=== PATIENT | female | born 1955 | race Caucasian/White ===

== ENCOUNTER 2023-11-16 17:37 | Emergency (ER) | payer MEDICARE, OTHER, SELFPAY ==
[2023-11-16 17:38] VITALS: PULSE 94; RESP 18
--- NOTE | 2023-11-16 17:41 | ECG_ITS ---
[facility] Test Date: 2023-11-16 Pat Name: Lisa Guerra Department: Room: Gender: Female [employer]er: : 1955 Requested By: Latrice Schulz Order Number: [id number] Martinez MD: Jamaal Zamarripa M.D. Measurements Intervals Media Rate: 94 P: 0 MD: 0 QRS: -54 QRSD: 85 T: 54 QT: 371 QTc: 465 Interpretive Statements ATRIAL FIBRILLATION PATTERN CONSISTENT WITH PULMONARY DISEASE LEFT ANTERIOR FASCICULAR BLOCK [QRS AXIS <= -45, QR IN I, RS IN II] Compared to ECG 10/31/2018 15:08:12 Left anterior fascicular block now present Sinus rhythm no longer present ST (T wave) deviation no longer present Electronically Signed On 11-17-2023 0:04:05 CDT by Jamaal Zamarripa M.D. [id number]
--- NOTE | 2023-11-16 17:49 | XRR_ITS ---
PROCEDURE INFORMATION: Exam: XR Chest Exam date and time: 11/16/2023 6:11 PM Age: 67 years old Clinical indication: Other: Pain and palpitations TECHNIQUE: Imaging protocol: Radiologic exam of the chest. Views: 1 view. COMPARISON: CR XR chest 1V [id number] 10/31/2018 3:15 PM FINDINGS: Lungs: Unremarkable. No consolidation. Pleural spaces: Unremarkable. No pleural effusion. No pneumothorax. Heart/Mediastinum: Unremarkable. No cardiomegaly. Bones/joints: Unremarkable. XR/XR chest 1V portable [id number] IMPRESSION: No acute findings.
--- NOTE | 2023-11-16 17:50 | ED_ITS ---
HPI - Arrhythmia/Palpitations 2 General: Chief Complaint: Arrhythmia/Palpitations Stated Complaint: A Fib/ RVR Time Seen by Provider: 11/16/23 17:45 History of Present Illness: 67-year-old female with a history of atr ial fibrillation who presents the emergency room with atrial fibrillation with rapid ventricular response by ambulance. She was in the 170s to 180s according to EMS and they gave some diltiazem and she is dropped back down to the 90s and low 100s. She said she had gone out shopping yesterday and had some swelling in her hands and feet. This seems to have improved at this point. Patient follows with Dr. Matute in [place] and Dr. Macedo in [place]. She says recently she has been having increased episodes and frequency of going into A-fib with RVR. She said for a while it was every month and then it was every 2 weeks and this time it was just 8 days. She is anticoagulated on Coumadin. Review of Systems 2 Narrative: Constitutional symptoms: Negative except as documented in HPI. Skin symptoms: Negative except as documented in HPI. Eye symptoms: Negative except as documented in HPI. ENMT symptoms: Negative except as documented in HPI. Respiratory symptoms: Negative except as documented in HPI. Cardiovascular symptoms: Negative except as documented in HPI. Gastrointestinal symptoms: Negative except as documented in HPI. Genitourinary symptoms: Negative except as documented in HPI. Musculoskeletal symptoms: Negative except as documented in HPI. Neurologic symptoms: Negative except as documented in HPI. Psychiatric symptoms: Negative except as documented in HPI. Endocrine symptoms: Negative except as documented in HPI. Physical Exam 2 Narrative: EXAM NARRATIVE: General: Alert, no acute distress. Skin: Warm, dry. Head: Normocephalic, atraumatic. Neck: Supple, trachea midline. Eye: Extraocular movements are intact. Ears, nose, mouth and throat: mucosa moist. Cardiovascular: Irregularly irregular, tachycardic, Normal peripheral perfusion. Respiratory: Lungs are clear to auscultation, respirations are non-labored, breath sounds are equal, Symmetrical chest wall expansion. Gastrointestinal: Soft, Nontender, Non distended, Normal bowel sounds. Musculoskeletal: Normal ROM, no deformity. Neurological: Alert and oriented, No focal neurological deficit observed. Psychiatric: Cooperative, appropriate mood & affect. Course 2 Vital Signs: Vital signs: Vital Signs Pulse Rate 95 11/16/23 20:18 Respiratory Rate 18 11/16/23 17:38 Blood Pressure 125/78 11/16/23 18:52 Pulse Oximetry 96 11/16/23 20:18 Oxygen Delivery Me thod Room Air 11/16/23 20:18 MDM - Arrhythmia/Palpitations Medical Decision Making Medical decision making: Differential diagnosis including but not limited to and based on the above HPI, review of systems and physical exam: for patient with palpitations: atrial fibrillation with rapid ventricular response. ventricular tachycardia. sinus tachycardia. PVCs. also concern for underlying issues causing tachycardia. Infection, electrolyte abnormalities and thyroid issues Orders placed to evaluate differential diagnosis based on the above differential, HPI and physical exam EKG: Time 1741. Rate 94. Atrial fibrillation with controlled rate, No ST-T changes, no ectopy, This was reviewed and interpreted by myself the ER physician at 1744. Chest x-ray: No acute process. No infiltrate. No pneumothorax. No cardiomegaly. This was reviewed and interpreted by myself the ER physician. Lab Review: Laboratory results were reviewed and interpreted by myself the emergency room physician. White count is 8. Hemoglobin is 15. No anemia. BUN and creatinine are 16 and 0.7. No renal failure. Sodium is normal. Potassium is normal. Magnesium and TSH are unremarkable. Initial troponin is negative. proBNP is 600. No signs of heart failure on chest x-ray. Patient was unable to provide a urine sample. She says she does not think she has a UTI and she wants to go home. She does not want to wait for urinalysis. I reviewed the patient's medical record. Reexamination: Patient appears quite a bit improved. She is insistent she is ready to go home. Rate is down below 100 consistently. No increased work of breathing. No altered mental status. She is up and walking to the bathroom. Assessment and plan: A-fib with RVR - Discharged home - Discussed findings and plan with patient. Answered any questions. - All laboratory values were reviewed and interpreted personally by myself, the ER physician - All imaging was reviewed and interpreted personally by myself, the ER physician. - Evaluation and treatment of this problem were appropriate in the emergency setting Lab Data 11/16/23 18:04 11/16/23 18:04 Radiology Impressions Chest X-Ray 11/16/23 17:49 IMPRESSION: No acute findings. Laboratory Results WBC 8.08 10^3/uL (3.29-11.43) 11/16/23 18:04 RBC 4.61 10^6/uL (3.85-5.65) 11/16/23 18:04 Hgb 15.10 g/dL (11.27-16.99) 11/16/23 18:04 Hct 44.2 % (36-47) 11/16/23 18:04 MCV 95.9 fl (85-98) 11/16/23 18:04 MCH 32.8 pg (27-33) 11/16/23 18:04 MCHC 34.2 g/dL (30-55) 11/16/23 18:04 RDW 13.3 % (12.1-15.1) 11/16/23 18:04 Plt Count 241 10^3/cmm (157-399) 11/16/23 18:04 MPV 10.5 fL (7.4-10.4) H 11/16/23 18:04 Neut % (Auto) 52.5 % 11/16/23 18:04 Lymph % (Auto) 32.8 % 11/16/23 18:04 Barbour % (Auto) 9.3 % 11/16/23 18:04 Eos % (Auto) 4.2 % 11/16/23 18:04 Baso % (Auto) 1.0 % 11/16/23 18:04 Neut # (Auto) 4.24 10^3/uL (1.8-7.7) 11/16/23 18:04 Lymph # (Auto) 2.7 10^3/uL (0.8-4.8) 11/16/23 18:04 Barbour # (Auto) 0.8 10^3/uL (0.2-0.9) 11/16/23 18:04 Eos # (Auto) 0.3 10^3/uL (0.0-0.8) 11/16/23 18:04 Baso # (Auto) 0.1 10^3/uL (0.0-0.1) 11/16/23 18:04 Nucleated RBC % (auto) 0 % 11/16/23 18:04 Nucleated RBCs # 0.0 /100WBC 11/16/23 18:04 PT 19.40 SECONDS (12.1-14.9) H 11/16/23 18:04 INR 1.58 (0.8-1.2) H 11/16/23 18:04 APTT 35.4 SECONDS (23.9-36.7) 11/16/23 18:04 Sodium 145 mmol/L (136-145) 11/16/23 18:04 Potassium 3.8 mmol/L (3.5-5.1) 11/16/23 18:04 Chloride 109 mmol/L (98-107) H 11/16/23 18:04 Carbon Dioxide 25 mmol/L (22-29) 11/16/23 18:04 Anion Gap 14.8 (5-19) 11/16/23 18:04 BUN 16 mg/dL (8-23) 11/16/23 18:04 Creatinine 0.7 mg/dL (0.5-0.9) 11/16/23 18:04 GFR Calculation 83.2 mL/min (90-130) L 11/16/23 18:04 Glucose 98 mg/dL (65-115) 11/16/23 18:04 Calculated Osmolality 301 mOsm/kg (285-295) H 11/16/23 18:04 Calcium 9.4 mg/dL (8.5-10.5) 11/16/23 18:04 Magnesium 2.0 mg/dL (1.7-2.3) 11/16/23 18:04 Total Bilirubin 0.5 mg/dL (0.15-1.2) 11/16/23 18:04 AST 18 U/L (0-32) 11/16/23 18:04 ALT 16 U/L (0-33) 11/16/23 18:04 Alkaline Phosphatase 122 U/L (35-105) H 11/16/23 18:04 Troponin T Baseline < 6 ng/L (0-10) 11/16/23 18:04 C-Reactive Protein 3.2 mg/L (0.0-4.9) 11/16/23 18:04 NT-Pro-B Natriuret Pep 613 pg/mL (0-125) H 11/16/23 18:04 Total Protein 7.3 g/dL (6.6-8.7) 11/16/23 18:04 Albumin 4.3 g/dL (3.5-5.2) 11/16/23 18:04 Globulin 3.0 g/dL (1.3-4.6) 11/16/23 18:04 Amorphous Sediment Not Reportable 11/16/23 19:38 All radiology interpretation(s) finalized by discharge Discharge Plan Discharge Patient Disposition: Home Clinical Impression: Atrial fibrillation Qualifiers: Atrial fibrillation type: unspecified Qualified Code(s): I48.91 - Unspecified atrial fibrillation Condition: Stable Discharge Orders: Discharge ED (Routine); Ordered 11/16/23 Ordered By: Latrice Hollingsworth Referrals: Ivon Moon APRN [Primary Care Provider] - Discharge Diet: Usual diet Discharge Activity: Increase activity as tolerated Patient Instructions: A-fib (Atrial Fibrillation) (ED) Activity Restrictions/Additional Instructions: Thank you for choosing [facility] for your healthcare needs today. Please realize this is an emergency room and that we are providing you with a medical screening exam and this may not be complete and all inclusive of all the testing and or work up that you may need to determine your ailment or severity of your illness. You have been screened and evaluated and felt safe for discharge. Health conditions do change or evolve sometimes and as such it is important that you follow up with your Primary Doctor to be re checked, 3-5 days is a general good time frame for follow up. You are always welcome to return to the ED for re assessment if your symptoms are worsening or you have new concerns Coding Level of Care Code ED [employer] for Massimo Newsome
[2023-11-16 18:25] LABS: Basophils # 0.1 10^3/uL (0.0-0.1); Eosinophils # 0.3 10^3/uL (0.0-0.8); Eosinophils % 4.2 %; Hematocrit 44.2 % (36-47); Lymphocytes # 2.7 10^3/uL (0.8-4.8); Lymphocytes % 32.8 %; Mean Corpuscular HGB Conc 34.2 g/dL (30-55); Mean Corpuscular Hemoglobin 32.8 pg (27-33); Mean Corpuscular Volume 95.9 fl (85-98); Mean Platelet Volume 10.5 fL (7.4-10.4); Monocytes # 0.8 10^3/uL (0.2-0.9); Monocytes % 9.3 %; Neutrophils # 4.24 10^3/uL (1.8-7.7); Neutrophils % 52.5 %; Nucleated Red Blood Cells % 0 %; Platelet Count 241 10^3/cmm (157-399); Red Blood Count 4.61 10^6/uL (3.85-5.65); Red Cell Distribution Width 13.3 % (12.1-15.1); White Blood Count 8.08 10^3/uL (3.29-11.43)
[2023-11-16 18:46] LABS: INR 1.58 (0.8-1.2)
[2023-11-16 18:47] LABS: Partial Thromboplastin Time 35.4 SECONDS (23.9-36.7); Troponin(5th) Baseline < 6 ng/L (0-10)
[2023-11-16 18:52] VITALS: BP 125/78; PULSE 115; O2SAT 97
[2023-11-16 18:56] LABS: Alanine Aminotransferase 16 U/L (0-33); Albumin Level 4.3 g/dL (3.5-5.2); Alkaline Phosphatase 122 U/L (35-105); Anion Gap 14.8 (5-19); Aspartate Amino Transferase 18 U/L (0-32); Blood Urea Nitrogen 16 mg/dL (8-23); C Reactive Protein 3.2 mg/L (0.0-4.9); Calcium 9.4 mg/dL (8.5-10.5); Carbon Dioxide 25 mmol/L (22-29); Chloride 109 mmol/L (98-107); Glomerular Filtration Rate 83.2 mL/min (90-130); Glucose 98 mg/dL (65-115); NT Pro B Type Natriuretic Pept 613 pg/mL (0-125); Osmolality Calculated 301 mOsm/kg (285-295); Potassium 3.8 mmol/L (3.5-5.1); Sodium 145 mmol/L (136-145); Total Bilirubin 0.5 mg/dL (0.15-1.2); Total Protein 7.3 g/dL (6.6-8.7)
[2023-11-16 20:18] VITALS: PULSE 95; O2SAT 96
[2023-11-16 20:29] LABS: Troponin 5 2HR Delta 0.00001 ABS# (0-10)
[2023-11-16 20:38] LABS: Bilirubin Urine Neg (Negative); Blood Urine 3+ (Negative); Glucose Urine UA Norm (Normal); Ketones Urine Negative (Negative); Leukocyte Esterase Urine Negative (Negative); Nitrate Urine Negative (Negative); Protein Urine Neg (Negative); Specific Gravity, Urine 1.015 (1.005-1.030); Sulfosalicylic Acid Urine Negative (Negative); Urine Appearance Clear (CLEAR); Urine Color Yellow (Yellow); Urobilinogen Urine Neg (Negative); WBC Urine 0-4 /hpf (0-5); pH Urine 8 (5-7)
[2023-11-16 20:39] LABS: Add Urine Culture? No; Bacteria Urine 1+ /hpf; Squamous Epithelial Cell Urine 0-4 /hpf (0-5)
[2023-11-16 20:42] VITALS: BP 125/72; PULSE 95; O2SAT 96
== END 2023-11-16 20:43 | disposition home or self-care (01) ==
PROVIDERS: Emergency Provider Emergency Medicine; Family Provider Nurse Practitioner Family; PCP Nurse Practitioner Family
DX: I48.91 Unspecified atrial fibrillation (principal)
CPT/HCPCS: 36415; 71045; 80053; 81001; 83735; 83880; 84484; 85025; 85610; 85730; 86140; 93005; 99285